=== PATIENT | female | born 1960 | race African-American/Black ===

== ENCOUNTER 2019-12-24 18:41 | Emergency (ER) | payer OTHER, SELFPAY ==
[2019-12-24 19:00] VITALS: BP 201/82; PULSE 90; RESP 19; TEMP 36.8; O2SAT 98
--- NOTE | 2019-12-24 19:00 | ED.GENADULT ---
HPI - General Adult General Chief complaint: Recheck/Abnormal Lab/Rx Stated complaint: elevated BP Time Seen by Provider: 12/24/19 19:00 Source: patient Mode of arrival: ambulatory Limitations: no limitations History of Present Illness HPI narrative: Patient states that she has been having more frequent migraines for the past couple days. She had one today took her usual Tylenol Extra Strength and her Claritin, her headache got a little bit better but then she took her blood pressure and noted to be high. She states that she has been eating a very salty diet for the last several days that included Fritos every night. She is denying any edema, no chest pain, no shortness of breath. At this time her headache is improved. Onset (ago): day(s) Severity scale (1-10): 1 Associated symptoms: denies other symptoms Treatments prior to arrival: NSAID Related Data Home Medications Medication Instructions Recorded Confirmed chlordiazepoxide HCl 12/24/19 diltiazem HCl PO 12/24/19 Allergies Allergy/AdvReac Type Severity Reaction Status Date / Time erythromycin base Allergy Intermediate UNKNOWN Verified 12/24/19 19:03 PER PT Review of Systems Review of Systems: All systems reviewed & are unremarkable except as noted in HPI and below PMFSH Social History Social History (Updated 12/24/19 @ 19:14 by Merline Feliz PA-C) Smoking status: Never smoker Alcohol intake: never Substance use: never Living arrangements: alone Gender identity (if verbalized by the patient): Female Exam Const: General: healthy appearing, no acute distress and alert Orientation/consciousness: patient oriented x3 HENMT: Head: normal to inspection General nose exam: Normal nares present Face and sinus: sinuses nontender Mouth: Yes moist mucous membranes Eyes: Periorbital: periorbital findings normal Conjunctivae: conjunctivae normal Pupils: Equal, round and reactive pupils present EOM: EOMs intact bilaterally Resp: Effort & Inspection: normal respiratory effort Auscultation: clear to auscultation bilaterally Cardio: Rate: regular rate Rhythm: regular rhythm GI: GI Palp: Yes Soft to palpation Skin: General skin exam: normal color Rashes: no rashes Extrem: General: normal to inspection and no clubbing, cyanosis or edema Psych: Mental Status: mental status grossly normal Course Course Emergency Course: Labs are unremarkable. Further discussion with pt revelled she was taking Claritan-D and her PMD had prescribed her Singulair instead. She got the medications confused. That in addition to the increase in sodium in her diet. Her blood pressure is better since arrival. Vital Signs Vital signs: Vital Signs Temperature 36.8 C 12/24/19 19:00 Pulse Rate 90 12/24/19 19:00 Respiratory Rate 19 12/24/19 19:00 Blood Pressure 201/82 H 12/24/19 19:00 Pulse Oximetry 98 12/24/19 19:00 Temperature 36.8 C 12/24/19 19:00 Pulse Rate 90 12/24/19 19:00 Respiratory Rate 19 12/24/19 19:00 Blood Pressure 201/82 H 12/24/19 19:00 Pulse Oximetry 98 12/24/19 19:00 Medical Decision Making Vital Signs Vital Signs: Vital Signs Temperature 36.8 C 12/24/19 19:00 Pulse Rate 90 12/24/19 19:00 Respiratory Rate 19 12/24/19 19:00 Blood Pressure 201/82 H 12/24/19 19:00 Pulse Oximetry 98 12/24/19 19:00 Temperature 36.8 C 12/24/19 19:00 Pulse Rate 90 12/24/19 19:00 Respiratory Rate 12/24/19 19:00 Blood Pressure 201/82 H 12/24/19 19:00 Pulse Oximetry 98 12/24/19 19:00 Lab Data Result diagrams: 12/24/19 19:34 12/24/19 19:34 Labs: Lab Results 12/24/19 12/24/19 12/24/19 Range/Units 19:34 19:34 19:34 WBC 7.1 (4.5-10.0) K/mm3 RBC 4.35 (4.2-5.4) M/mm3 Hgb 13.3 (12.0-15.0) g/dL Hct 42.1 (37.0-47.0) % MCV 96.8 (80-100) fl MCH 30.6 (26-34) pg MCHC 31.6 L (32-36) g/dl RDW 12.2 (11.5-14.5) % Plt Coun
--- NOTE | 2019-12-24 19:03 | ECG_ITS ---
Measurements Intervals [place] Rate: 95 P: 54 [place]: 169 QRS: 41 QRSD: 86 T: 14 QT: 366 QTc: 462 Interpretive Statements SINUS RHYTHM DELAYED PRECORDIAL R/S TRANSITION BORDERLINE T WAVE ABNORMALITY- INF/LAT LEADS BORDERLINE ECG Electronically Signed On 12-27-2019 7:09:38 STUDENT ACCOUNTS COORDINATOR by Jorge Luis Jansen D.O.
[2019-12-24 19:43] LABS: Basophils Absolute Auto 0.1 K/mm3 (0.0-0.1); Basophils Percent Auto 0.7 % (0.2-1.2); Eosinophils Absolute Auto 0.1 K/mm3 (0-0.3); Eosinophils Percent Auto 1.4 % (0-4.4); Hematocrit 42.1 % (37.0-47.0); Hemoglobin 13.3 g/dL (12.0-15.0); Immature Granulocyte Absolute 0.02 K/mm3 (0.00-0.031); Immature Granulocyte Percent A 0.3 % (0-0.5); Lymphocytes Absolute Auto 2.27 K/mm3 (0.9-3.2); Mean Corpuscular HGB Conc 31.6 g/dl (32-36); Mean Corpuscular Hemoglobin 30.6 pg (26-34); Mean Corpuscular Volume 96.8 fl (80-100); Mean Platelet Volume 11.8 fl (7.4-10.4); Monocytes Absolute Auto 0.7 K/mm3 (0.1-0.6); Monocytes Percent Auto 10.3 % (2.6-8.5); Neutrophils Absolute Auto 3.9 K/mm3 (1.3-6.7); Neutrophils Percent Auto 55.3 % (45.5-73.1); Platelet Count Result 224 k/mm3 (150-375); Red Blood Count 4.35 M/mm3 (4.2-5.4); Red Cell Distribution Width 12.2 % (11.5-14.5); White Blood Count 7.1 K/mm3 (4.5-10.0)
[2019-12-24 19:45] LABS: Add Urine Microscopic? NO; Appearance Urine Clear (Clear); Bilirubin Urine Negative (Negative); Blood Urine Negative (Negative); Color Urine Colorless (Yellow); Glucose Urine UA Negative (Negative); Ketones Urine Negative (Negative); Leukocyte Esterase Ur Negative LEU/UL (Negative); Nitrate Urine Negative (Negative); Protein Urine Negative (Negative); Specific Grav Ur 1.008 (1.001-1.035); Urobilinogen Urine Negative mg/dL (<2.0)
[2019-12-24 19:53] LABS: Alanine Aminotransferase 22 U/L (4-35); Albumin Level 4.8 g/dL (3.5-5.1); Alkaline Phosphatase 76 U/L (38-126); Aspartate Amino Transferase 26 U/L (14-36); Bilirubin,Total 0.3 mg/dL (0.2-1.3); Blood Urea Nitrogen 13 mg/dL (7-17); Calcium 9.6 mg/dL (8.4-10.2); Carbon Dioxide 26 mmol/L (22-30); Chloride 100 mmol/L (98-107); Estimated Glomerular Filt Rate > 60; Glucose 109 mg/dL (65-105); Potassium 3.6 mmol/L (3.4-5.0); Sodium 142 mmol/L (137-145)
[2019-12-24 20:29] VITALS: BP 184/73; PULSE 64; RESP 14; O2SAT 100
== END 2019-12-24 20:31 | disposition home or self-care (01) ==
PROVIDERS: Physician Assistant; Emergency Provider Emergency Medicine; PCP Internal Medicine
DX: I10 Essential (primary) hypertension (principal); G43.109 Migraine with aura, not intractable, without status migrainosus; R94.31 Abnormal electrocardiogram [ECG] [EKG]
CPT/HCPCS: 36415; 80053; 81003; 85025; 93005; 99283

== ENCOUNTER 2020-05-10 13:24 | Outpatient (CLI) | payer OTHER, SELFPAY ==
[2020-05-10 13:52] LABS: Basophils Absolute Auto 0.1 K/mm3 (0.0-0.1); Basophils Percent Auto 0.6 % (0.2-1.2); Eosinophils Absolute Auto 0.1 K/mm3 (0-0.3); Eosinophils Percent Auto 1.3 % (0-4.4); Immature Granulocyte Absolute 0.02 K/mm3 (0.00-0.031); Immature Granulocyte Percent A 0.2 % (0-0.5); Lymphocytes Absolute Auto 2.97 K/mm3 (0.9-3.2); Lymphocytes Percent Auto 30.6 % (18.3-44.2); Mean Corpuscular HGB Conc 31.8 g/dl (32-36); Mean Corpuscular Hemoglobin 31.2 pg (26-34); Mean Platelet Volume 11.5 fl (7.4-10.4); Monocytes Absolute Auto 0.8 K/mm3 (0.1-0.6); Monocytes Percent Auto 8.5 % (2.6-8.5); Neutrophils Absolute Auto 5.7 K/mm3 (1.3-6.7); Neutrophils Percent Auto 58.8 % (45.5-73.1); Platelet Count Result 276 k/mm3 (150-375); Red Blood Count 4.49 M/mm3 (4.2-5.4); Red Cell Distribution Width 11.9 % (11.5-14.5); White Blood Count 9.7 K/mm3 (4.5-10.0)
== END 2020-05-10 13:25 | disposition home or self-care (01) ==
PROVIDERS: PCP Internal Medicine; Visit Provider Obstetrics & Gynecology
DX: D25.9 Leiomyoma of uterus, unspecified (principal); Z01.812 Encounter for preprocedural laboratory examination
CPT/HCPCS: 36415; 85025; 86850; 86900; 86901

== ENCOUNTER 2020-05-17 01:13 | Outpatient (CLI) | payer OTHER, SELFPAY ==
[2020-05-17 18:07] LABS: SARS-CoV-2 RNA PCR Negative
== END 2020-05-17 01:14 | disposition home or self-care (01) ==
LOC: ANHCOVIDDT 01:13
PROVIDERS: PCP Internal Medicine; Visit Provider Obstetrics & Gynecology
DX: Z01.812 Encounter for preprocedural laboratory examination (principal); Z11.59 Encounter for screening for other viral diseases
CPT/HCPCS: 87635; C9803; U0003

== ENCOUNTER 2020-05-19 02:26 | Day surgery (SDC) | payer OTHER, SELFPAY ==
[2020-05-08 15:01] VITALS: BMI 29.1
--- NOTE | 2020-05-17 09:29 | P.HP_ITS ---
H&P: HPI History of Present Illness Chief complaint: Postmenopausal Bleeding/ Uterine Fibroids Narrative: Yulia Lizarraga is a 60 year old female admitted for robotic total vaginal hysterectomy and bilateral salpingo- oophorectomy. She has had intermittent postmenopausal bleeding. D&C specimens have always been benign. Risks and benefits of the procedure were reviewed. She had all questions answered. She asked to proceed Review of Systems Review of Systems: All systems reviewed & are unremarkable except as noted in HPI and below PMFSH Social History Social History Smoking status: Never smoker Alcohol intake: never Substance use: never Gender identity (if verbalized by the patient): Female Spiritual care concerns: No Meds Home Medications and Allergies Home Medications Medication Instructions Recorded Confirmed Type chlordiazepoxide HCl 10 mg PO BID 12/24/19 05/08/20 History cholecalciferol (vitamin D3) 50 mcg PO DAILY 05/08/20 05/08/20 History [Vitamin D3] diltiazem HCl 240 mg PO DAILY 05/08/20 05/08/20 History loratadine [Claritin] 10 mg PO DAILY 05/08/20 05/08/20 History montelukast [Singulair] 10 mg PO DAILY 05/08/20 05/08/20 History omeprazole 20 mg PO DAILY 05/08/20 05/08/20 History Allergies Allergy/AdvReac Type Severity Reaction Status Date / Time erythromycin base Allergy Intermediate UNKNOWN Verified 05/08/20 15:05 PER PT ciprofloxacin Allergy UNKNOWN Verified 05/08/20 15:05 REACTION Exam Const: General: no acute distress Eyes: General: appearance normal, both eyes and all related structures Neck: Neck: supple and no JVD Thyroid: thyroid normal Resp: Effort & Inspection: normal respiratory effort Auscultation: clear to auscultation bilaterally Cardio: Rate: regular rate Rhythm: regular rhythm GI: Inspection: non-distended GI Palp: Yes Soft to palpation, No Tenderness to palpation present (GI) and No Guarding due to palpation present (GI) Auscultation: normal bowel sounds : External Female Exam: normal external appearance Speculum Exam - Vagina: normal appearance of the vagina Speculum Exam - Cervix: normal appearance of the cervix Bimanual exam- vagina & uterus: enlarged Bimanual Exam- Adnexa, other: no masses Skin: General skin exam: no rashes or lesions noted Extrem: General: normal to inspection and no edema Psych: Mental Status: mental status grossly normal Affect: normal affect Assessment and Plan Additional Plan impression: Symptomatic fibroids postmenopausal bleeding with benign endometrial findings Plan: total vaginal hysterectomy and bilateral salpingo-oophorectomy the
[2020-05-19] VITALS (14 sets, daily range): BP systolic 141–184; BP diastolic 47–69; PULSE 48–99; RESP 13–18; TEMP 36.1–37.1; O2SAT 95–100
--- NOTE | 2020-05-19 06:50 | WPDHPUPDATE1 ---
History and Physical Update Update Date/Time: 05/19/20 06:50 History and Physical has been reviewed, including an updated exam of the patient. There are NO changes in the patient's condition. Risks, benefits, and alternatives have been discussed and questions answered. Patient agrees to proceed with procedure.
[2020-05-19] MEDS: LACTATED RINGERS 1,000 ML 30 ML IV CONT ×2 (07:55→10:45)
--- NOTE | 2020-05-19 08:07 | WPDANESEPPF ---
Anes - Initial Pre Proc Eval Procedure: Operation Date: 05/19/20 09:30 Proposed Procedures p Robotic Assisted Total Vaginal Hysterectomy With Bilateral Salpingo-Oophorectomy - Diomedes Villagomez MD Date/Time: 05/19/20 08:07 Surgeon: Diomedes Villagomez MD Pre Op Diagnosis: Postmenopausal Bleeding/ Uterine Fibroids Patient Data Age: 60 Gender: F Height: 5 ft 7 in Weight: 81 kg Allergies Allergy/AdvReac Type Severity Reaction Status Date / Time erythromycin base Allergy Intermediate UNKNOWN Verified 05/19/20 07:34 PER PT ciprofloxacin Allergy UNKNOWN Verified 05/19/20 07:34 REACTION Home Medications Medication Instructions Recorded Confirmed Type chlordiazepoxide HCl 10 mg PO BID 12/24/19 05/19/20 History cholecalciferol (vitamin D3) 50 mcg PO DAILY 05/08/20 05/19/20 History [Vitamin D3] diltiazem HCl 240 mg PO DAILY 05/08/20 05/19/20 History loratadine [Claritin] 10 mg PO DAILY 05/08/20 05/19/20 History montelukast [Singulair] 10 mg PO DAILY 05/08/20 05/19/20 History omeprazole 20 mg PO DAILY 05/08/20 05/19/20 History hydrocodone-acetaminophen [[place]] 1 tablet PO Q4H PRN #30 tablet 05/19/20 Rx Patient hx anesthesia problems: none Family hx anesthesia problems: none PMFSH Social History Social History Smoking status: Never smoker Alcohol intake: never Substance use: never Gender identity (if verbalized by the patient): Female Spiritual care concerns: No Anes - Eval Final PreProcedure Day of Procedure 05/19/20 08:07 Patient weight: overweight Heart: regular rate and rhythm Lungs: clear to auscultation Airway: Mallampati scale class II Neurological: alert and oriented Last oral intake: >/= 8 hours ASA classification: II Emergent: no Anesthetic plan: proceed Anesthesia type and monitoring: general ETT and standard monitoring Informed Consent: The patient's anesthetic plan and its attendant risks and benefits were discussed with the patient/family/POA. Questions were solicited and answers provided to the satisfaction of the patient/family/POA.
[2020-05-19] MEDS: KETOROLAC 15 MG/ML VIAL (*BKC) IV PUSH (08:09)
[2020-05-19] MEDS: ACETAMINOPHEN 500 MG TABLET 1000 MG PO (08:09)
[2020-05-19] MEDS: ceFAZolin 2 GM/D5W 50 ML 2 GM/50 ML BAG IVPB (09:24)
--- NOTE | 2020-05-19 10:23 | SUR.OPER ---
Ebl=25ml Dszen=[id number]
--- NOTE | 2020-05-19 10:32 | PM.PROC ---
Procedure Note - Detailed Date of procedure: 05/19/20 Pre-op diagnosis: Postmenopausal Bleeding/ Uterine Fibroids Surgeon: Diomedes Villagomez MD Postop diagnosis: Postmenopausal bleeding/ uterine fibroids Procedure: Robotic total vaginal hysterectomy and bilateral salpingectomy EBL: 25cc Complications: None Findings: Fibroid uterus normal-appearing ovaries and tubes Description of procedure: The patient was prepped draped in the normal sterile fashion placed in the dorsal lithotomy position. Under excellent general endotracheal anesthesia weighted speculum placed in posterior fornix of vagina. Anterior lip of the cervix grasped with single-tooth tenaculum and the uterus sounded to 10cm. Serial dilatation with fragmented dilators performed followed by passage of the 8. DAYAN and the 3. And half cold cup. A 16 [place] catheter was placed in the bladder draining clear fluid. The remainder the instruments removed. Gloves were changed. A supraumbilical incision made in the Veress needle passed in the abdomen. The abdomen was filled with CO2 gas [id number]. The 8mm trocar advanced in the abdomen. The downside visualized and no injury seen. The patient was placed in Trendelenburg and right and left lateral quadrant incision made. The 8mm trocars were advanced directly into the abdomen under direct visualization assuring no injury. A right upper quadrant incision made in the 10mm trocar advanced in the abdomen under direct visualization again assuring no injury. The robot was docked. Attention was turned to the counseling services director. The round ligament on the left was clamped, burned, cut. Anteriorly a bladder flap was formed by sharply dissecting across the the cervix and uterus reflecting the bladder caudally away from the dissecting area. This was brought to the opposite round ligament which was clamped, burned, cut. The left infundibulopelvic structure was then skeletonized. This was clamped, burned, cut and brought to the level of the previously cut round ligament. In like fashion to remove the right ovary and tube the infundibulopelvic was skeletonized. This was clamped, burned, cut. This was brought to the level of the previously cut round ligament. The cardinal and broad ligaments were then serially skeletonized on the left brought down the lateral edge of the cervix and uterus. These were clamped, burned, cut until each uterine vessel could be seen individually which were clamped, burned, cut. In like fashion the cardinal and broad ligaments on the right were serially skeletonized. These were clamped, burned, cut and brought down the level of previously cut pedicles. When the uterine vessels could be seen these were individually clamped, burned, cut. Blanching of the uterus was seen. A colpotomy incision was made in the cervix uterus ovaries and tubes were removed through the vagina. The vagina was closed with continuous running 0V lock from lateral edge to lateral edge and back to the midline. Irrigation undertaken to clear and hemostasis was assured. The robot was undocked. The gas removed from the abdomen. The trocars removed from the abdomen. The incisions closed with 4 O Monocryl and glue. All sponge, needle, instrument counts were correct. There were no immediate complications. Patient went to recovery in satisfactory condition
--- NOTE | 2020-05-19 10:50 | ECG_ITS ---
Measurements Intervals [place] Rate: 48 P: 240 [place]: 137 QRS: 50 QRSD: 95 T: 0 QT: 450 QTc: 405 Interpretive Statements SINUS RHYTHM WITH COMPLETE HEART BLOCK JUNTIONAL ESCAPE RHYTHM INCOMPLETE RIGHT BUNDLE BRANCH BLOCK NONSPECIFIC ST & T-WAVE ABNORMALITY- INF/LAT LEADS ABNORMAL ECG Electronically Signed On 05-19-2020 12:53:24 CDT by Jorge Luis Jansen D.O.
--- NOTE | 2020-05-19 11:17 | SUR.PHASEI ---
1050- foleyin place, patnt. secured to right thigh. peripad in place. abd sites with glue.
[2020-05-19] MEDS: DEXTROSE 5%/LACTATED RINGERS 1,000 ML 125 ML IV CONT (12:26)
[2020-05-19] MEDS: KETOROLAC 30 MG/ML VIAL (*BKC) IV PUSH ×2 (15:01→21:10)
[2020-05-20 05:00] VITALS: BP 162/65; PULSE 99; RESP 16; TEMP 36.8
[2020-05-20] MEDS: IBUPROFEN 600 MG TABLET PO (05:00)
[2020-05-20 05:18] LABS: Basophils Percent Auto 0.1 % (0.2-1.2); Eosinophils Percent Auto 0.1 % (0-4.4); Hematocrit 41.1 % (37.0-47.0); Hemoglobin 13.4 g/dL (12.0-15.0); Immature Granulocyte Absolute 0.09 K/mm3 (0.00-0.031); Immature Granulocyte Percent A 0.6 % (0-0.5); Lymphocytes Absolute Auto 1.74 K/mm3 (0.9-3.2); Lymphocytes Percent Auto 11.2 % (18.3-44.2); Mean Corpuscular HGB Conc 32.6 g/dl (32-36); Mean Corpuscular Hemoglobin 31.3 pg (26-34); Mean Platelet Volume 11.8 fl (7.4-10.4); Monocytes Absolute Auto 1.1 K/mm3 (0.1-0.6); Monocytes Percent Auto 7.1 % (2.6-8.5); Neutrophils Absolute Auto 12.6 K/mm3 (1.3-6.7); Neutrophils Percent Auto 80.9 % (45.5-73.1); Platelet Count Result 248 k/mm3 (150-375); Red Blood Count 4.28 M/mm3 (4.2-5.4); Red Cell Distribution Width 11.9 % (11.5-14.5); White Blood Count 15.6 K/mm3 (4.5-10.0)
[2020-05-20 06:30] VITALS: BP 171/77; PULSE 87; RESP 18; TEMP 37.6
--- NOTE | 2020-05-20 07:39 | PM.DS ---
DS: Admitting Diagnosis Admitting Diagnosis Admitting Diagnosis: Leiomyoma of uterus, unspecified DS: Summary Hospital Course Hospital Course: Ms. Lizarraga was admitted after robotic assisted total laparoscopic hysterectomy and bilateral salpingo-oophorectomy for abnormal uterine bleeding secondary to uterine fibroids. The above procedure was performed with no complications. She is doing well post op. She states her pain is well controlled with PO medications. She reports minimal bleeding. She is ambulating up to the chair. Her he catheter was removed. She is tolerating PO without N/V. She reports passing flatus. Status at Discharge Overall status at discharge: patient is progressing back to baseline Time Spent with Patient Time attestation: Total time spent providing and/or coordinating discharge services: Time spent: Less than 30 minutes Exam Const: General: comfortable and no acute distress Limitations: no limitations Resp: Effort & Inspection: normal respiratory effort Auscultation: clear to auscultation bilaterally Cardio: Rate: regular rate Rhythm: regular rhythm GI: Inspection: non-distended GI Palp: Yes Soft to palpation, Yes Tenderness to palpation present (GI) (milder tenderness to deep palpation) and No Guarding due to palpation present (GI) Auscultation: normal bowel sounds Other: incisions C/D/I covered with dermabond Urinary Catheter: Urinary Catheter: urine clear Skin: General skin exam: normal color Extrem: General: normal to inspection Psych: Mental Status: mental status grossly normal Affect: normal affect DS: Data Data Completed and Pending Pending studies at discharge: Pending at discharge 05/19/20 10:07 Surgical [PTH] Routine Labs on day of discharge: Labs from last 24 hours 05/20/20 05:07 WBC 15.6 H RBC 4.28 Hgb 13.4 Hct 41.1 MCV 96.0 MCH 31.3 MCHC 32.6 RDW 11.9 Plt Count 248 MPV 11.8 H Immature Gran % (Auto) 0.6 H Neut % (Auto) 80.9 H Lymph % (Auto) 11.2 L [place] % (Auto) 7.1 Eos % (Auto) 0.1 Baso % (Auto) 0.1 L Lymph # (Auto) 1.74 [place] # (Auto) 1.1 H Eos # (Auto) 0.0 Baso # (Auto) 0.0 Abs Immat Gran (auto) 0.09 H Absolute Neuts (auto) 12.6 H Absolute Nucleated RBC 0.0 Nucleated RBC % 0.0 Discharge Plan Discharge Patient Disposition: Home, Self-Care Patient Instructions: Laparoscopic Hysterectomy (DC) Stand Alone Forms: General Discharge Instructions Follow-up/Referrals: Diomedes Villagomez MD [Physician] - Discharge Medications: New hydrocodone-acetaminophen [[place]] 5-325 mg tablet 1 tablet PO Q4H PRN (Reason: pain) Qty: 30 RF: 0 No Action chlordiazepoxide HCl 10 mg capsule 10 mg PO BID RF: 0 diltiazem HCl 240 mg capsule,extended release 24 hr 240 mg PO DAILY RF: 0 montelukast [Singulair] 10 mg Tablet 10 mg PO DAILY RF: 0 loratadine [Claritin] 10 mg Tablet 10 mg PO DAILY RF: 0 cholecalciferol (vitamin D3) [Vitamin D3] 50 mcg (2,000 unit) Capsule 50 mcg PO DAILY RF: 0 omeprazole 20 mg Tablet,Disintegrat, Delay Rel 20 mg PO DAILY RF: 0 Primary Care Provider: Kristopher,Reji Attending physician on admission: Diomedes Villagomez
[2020-05-20] MEDS: DOCUSATE SODIUM 100 MG CAPSULE PO (08:00)
[2020-05-20] MEDS: ENOXAPARIN 40 MG/0.4 ML SYRINGE SUB-Q (08:00)
--- NOTE | 2020-05-20 08:17 | P.PNAN_ITS ---
Anes - Prog Note Post-Op Date/Time: 05/20/20 08:17 Cardiovascular status: normal Respiratory status: normal Airway patency: baseline Mental status: baseline Post-Op hydration status: normal Vital Signs: Last Vital Signs Temp 99.6 F 05/20/20 06:30 Pulse 87 05/20/20 06:30 Resp 18 05/20/20 06:30 BP 171/77 H 05/20/20 06:30 Pulse Ox 100 05/19/20 15:00 I/O: Intake & Output 05/19/20 05/20/20 05/20/20 23:59 07:59 15:59 Intake Total 1600 1000 Output Total 1950 1350 Balance -350 -350 Laboratory Tests 05/20/20 05:07 05/20/20 05:07 WBC 15.6 H RBC 4.28 Hgb 13.4 Hct 41.1 MCV 96.0 MCH 31.3 MCHC 32.6 RDW 11.9 Plt Count 248 MPV 11.8 H Immature Gran % (Auto) 0.6 H Neut % (Auto) 80.9 H Lymph % (Auto) 11.2 L [place] % (Auto) 7.1 Eos % (Auto) 0.1 Baso % (Auto) 0.1 L Lymph # (Auto) 1.74 [place] # (Auto) 1.1 H Eos # (Auto) 0.0 Baso # (Auto) 0.0 Abs Immat Gran (auto) 0.09 H Absolute Neuts (auto) 12.6 H Absolute Nucleated RBC 0.0 Nucleated RBC % 0.0 Post-procedural complaints: none Patient Feedback: Patient satisfied with anesthetic care.
== END 2020-05-20 09:12 | disposition home or self-care (01) ==
LOC: ANHSURGERY 07:18 → ANHOB2 12:10
PROVIDERS: PCP Internal Medicine; Visit Provider Obstetrics & Gynecology
PROC: (CPT 58552; principal; 2020-05-19 09:30)
DX: N95.0 Postmenopausal bleeding (principal); N80.0 Endometriosis of uterus; D25.1 Intramural leiomyoma of uterus
CPT/HCPCS: 58552; S2900; 36415; 85025; 88307; 93005; 99199; A9270; J0330; J0690; J1100; J1650; J1885; J2250; J2405; J2704; J2710; J3010; J7030; J7120; J7121

== ENCOUNTER 2021-02-27 08:35 | Outpatient (CLI) | payer OTHER, SELFPAY ==
--- NOTE | ~2021-02-27 | MM_ITS ---
EXAMINATION: MM screening julia BI w lupis HISTORY: Screening mammogram TECHNIQUE: Craniocaudal and mediolateral oblique 3-D tomosynthesis images were obtained and synthetic 2-D images were generated. CAD analysis was submitted and interpreted. COMPARISON: 11/24/2019, 11/16/2018, 09/18/2017 BREAST PARENCHYMAL COMPOSITION: There are scattered areas of fibroglandular density. FINDINGS: Scattered benign-appearing calcifications are present. There is no evidence of suspicious m ass, calcification, or architectural distortion to suggest malignancy in either breast. There has bee n no suspicious interval change. IMPRESSION: 1. No mammographic evidence of malignancy. 2. Recommend routine screening mammography in one year. BI-RADS Category 2: Benign finding(s). Reviewed, dictated and finalized at location A.
== END 2021-02-27 08:36 | disposition home or self-care (01) ==
PROVIDERS: PCP Internal Medicine; Visit Provider Obstetrics & Gynecology
DX: Z12.31 Encounter for screening mammogram for malignant neoplasm of breast (principal)
CPT/HCPCS: 77063; 77067

== ENCOUNTER 2022-03-18 08:56 | Outpatient (CLI) | payer OTHER, SELFPAY ==
--- NOTE | ~2022-03-18 | MM_ITS ---
EXAMINATION: MM screening julia BI w lupis HISTORY: Screening TECHNIQUE: Craniocaudal and mediolateral oblique 3-D tomosynthesis images were obtained and synthetic 2-D images were generated. CAD analysis was submitted and interpreted. COMPARISON: Comparison to multiple prior studies sequentially, with oldest reviewed study dated 05/06. BREAST PARENCHYMAL COMPOSITION: There are scattered areas of fibroglandular density. FINDINGS: There is a new focal asymmetry in the central aspect of the right breast posteriorly on CC view. The left breast is stable without evidence for malignancy. There are scattered benign-appearing calcifications. IMPRESSION: 1. New focal right breast asymmetry. 2. Additional mammographic views and possible breast ultrasound are recommended. BI-RADS Category 0: Incomplete: Needs additional imaging evaluation. Reviewed, dictated and finalized at location A. IMPRESSION: 1. New focal right breast asymmetry. 2. Additional mammographic views and possible breast ultrasound are recommended . BI-RADS Category 0: Incomplete: Needs additional imaging evaluation.
== END 2022-03-18 08:57 | disposition home or self-care (01) ==
LOC: ANHIMG 09:02
PROVIDERS: Visit Provider Obstetrics & Gynecology
DX: Z12.31 Encounter for screening mammogram for malignant neoplasm of breast (principal); R92.8 Other abnormal and inconclusive findings on diagnostic imaging of breast
CPT/HCPCS: 77063; 77067

== ENCOUNTER 2022-04-02 12:20 | Outpatient (CLI) | payer OTHER, SELFPAY ==
--- NOTE | ~2022-04-02 | MM_ITS ---
EXAMINATION: MM diagnostic julia RT w lupis HISTORY: New focal right breast asymmetry reported on 03/18/2022 screening mammogram TECHNIQUE: Additional 3-D tomosynthesis images of right breast were performed and synthetic 2-D image s were generated. Rolled medial and rolled lateral CC views. CAD analysis was submitted and interpret ed. COMPARISON: 03/18/2022 bilateral screening mammogram FINDINGS: No reproducible mass or architectural distortion is evident at the area of interest in the posterior central right breast on craniocaudal view of 03/18/2022. Scattered benign calcifications. IMPRESSION: 1. No mammographic evidence of malignancy 2. Routine annual mammographic screening is recommended BI-RADS Category 2: Benign finding(s). Reviewed, dictated and finalized at location A.
== END 2022-04-02 12:21 | disposition home or self-care (01) ==
LOC: ANHIMG 12:21
PROVIDERS: Visit Provider Obstetrics & Gynecology
DX: R92.8 Other abnormal and inconclusive findings on diagnostic imaging of breast (principal)
CPT/HCPCS: 77061; 77065; G0279

== ENCOUNTER 2023-04-08 09:50 | Outpatient (CLI) | payer OTHER, SELFPAY ==
--- NOTE | ~2023-04-08 | MM_ITS ---
EXAMINATION: MM screening julia BI w lupis HISTORY: Screening mammogram TECHNIQUE: Craniocaudal and mediolateral oblique 3-D tomosynthesis images were obtained and synthetic 2-D images were generated. CAD analysis was submitted and interpreted. COMPARISON: 03/29/2022 diagnostic right mammogram 03/18/2022, 02/27/2021, 11/24/2019 bilateral screening mammogram examinations BREAST PARENCHYMAL COMPOSITION: There are scattered areas of fibroglandular density. FINDINGS: Scattered bilateral benign microcalcifications. There is no evidence of suspicious mass, ca lcification, or architectural distortion to suggest malignancy in either breast. There has been no rudd spicious interval change. IMPRESSION: 1. No mammographic evidence of malignancy. 2. Recommend routine screening mammography in one year. BI-RADS Category 2: Benign finding(s). Reviewed, dictated and finalized at location A.
== END 2023-04-08 09:51 | disposition home or self-care (01) ==
LOC: ANHIMG 09:57
PROVIDERS: PCP Internal Medicine; Visit Provider Obstetrics & Gynecology
DX: Z12.31 Encounter for screening mammogram for malignant neoplasm of breast (principal)
CPT/HCPCS: 77063; 77067

== ENCOUNTER 2024-01-15 11:16 | Outpatient (CLI) | payer OTHER, SELFPAY ==
--- NOTE | ~2024-01-15 | MMUS_ITS ---
EXAMINATION: MM diagnostic julia LT w lupis, US breast LT complete HISTORY: Left breast pain TECHNIQUE: Additional 3-D tomosynthesis images of the left breast were performed and synthetic 2-D im ages were generated. CAD analysis was submitted and interpreted. High resolution complete left breast ultrasound examination including all 4 quadrants and subareolar area was performed. COMPARISON: 04/08/2023, 03/14/2022 bilateral screening mammogram examinations FINDINGS: MAMMOGRAPHIC FINDINGS: Approximately 7 x 7 mm mass is suggested posteriorly in the upper outer left breast (ML Tomosynthesis image 26/81). The heterogeneously dense stroma may obscure small masses. Complete left breast ultrasound examinatio n was performed. ULTRASOUND: 12:00 2 cm from nipple: 4.2 x 5.6 mm stable cyst with through transmission and posterior enhancement, no internal vascularity 12:00 1 cm from nipple: 4 x 6 mm parallel oval circumscribed sonolucency with through transmission an d posterior enhancement, no internal vascularity, consistent with simple cyst 1:00 8 cm from nipple: Similar 9 x 10 mm simple cyst 1:00 7 cm from nipple: 3.8 x 5.8 mm simple cyst No suspicious mass or shadowing of the left breast is detected. IMPRESSION: 1. Benign cysts 2. Routine annual mammographic screening is recommended BI-RADS Category 2: Benign finding(s). Reviewed, dictated and finalized at location A. TECHNICIAN IMPRESSION: 1. Benign cysts 2. Routine annual mammographic screening is recommended BI-RADS Category 2: Benign finding(s).
== END 2024-01-15 11:17 | disposition home or self-care (01) ==
PROVIDERS: Visit Provider Obstetrics & Gynecology
DX: N64.4 Mastodynia (principal)
CPT/HCPCS: 76641; 77061; 77065; G0279

== ENCOUNTER 2025-07-05 10:12 | Outpatient (CLI) | payer OTHER, SELFPAY ==
--- NOTE | ~2025-07-05 | MM_ITS ---
EXAMINATION: MM screening [facility] BI w lupis HISTORY: Screening TECHNIQUE: Craniocaudal and mediolateral oblique 3-D tomosynthesis images were obtained and synthetic 2-D images were generated. CAD analysis was submitted and interpreted. COMPARISON: Comparison to multiple prior studies sequentially, with oldest reviewed study dated 09/18/2017. BREAST PARENCHYMAL COMPOSITION: There are scattered areas of fibroglandular density. FINDINGS: There is no evidence of suspicious mass, calcification, or architectural distortion to suggest malignancy in either breast. Scattered benign-appearing calcifications are present. IMPRESSION: 1. No mammographic evidence of malignancy. 2. Recommend routine screening mammography in one year. BI-RADS Category 2: Benign finding(s). Reviewed, dictated and finalized at location B.
--- OUTSIDE RECORDS SUMMARY | 2025-07-05 10:38 | XMS_ITS | Clinical Summary ---
Author Organization [facility] Address [address] [facility] [place] [address] Care Team Providers Care Cnc Laser Operator Name Role Phone Diomedes Glez MD Unavailable [phone] Donnell Lopez MD Unavailable [phone] Philip Duarte MD Primary Care Provider [phone] Source Comments [facility],non-owned Affiliates and Associated Physician Practices is amultiple site organization consisting of ambulatory clinics and hospital sitesin [place], [place], [place] and [place]. This disclosure is being madepursuant to the Care Everywhere program and may not contain all information available regarding this patient. Last updated 18.[facility] Allergies Active Allergy Reactions Criticality Noted Date Comments Chlorthalidone Palpitations High 08/17/2024 Ciprofloxacin Rash,Psychiatric,Urticaria High 2019 Erythromycin Headache,Other High 03/23/2024 Hydralazine Palpitations High 08/17/2024 Trazodone Psychiatric,Palpitations High 08/17/2024 Medications * Be aware that medications may not be up to date on this document. Alwaysverify current medications with the patient. vitamin D, cholecalciferol , 2000 UNITS tablet Take 1 Tab by mouth once daily. 0 04/01/20 13 Active diphenhydrAMINE (BENADRYL) 25 MG capsule Take 1 Cap by mouth nightly as needed for Itching. 0 02/01/20 14 Active multivitamin daily tablet Take 1 (one) tablet by mouth daily with food When pt remembers Active Sodium Chloride (NASAL MIST IN) Extra Strength 1 spray each nostril daily prn. Active SUMAtriptan (IMITREX) 100 MG tablet Take 1 tablet by mouth once as needed for Migraine Maximum of 200mg per day. May repeat first dose after 2 hours. 9 tablet 5 08/23/20 20 Active PREMARIN 1.25 MG tablet Take 1 (one) tablet by mouth once daily 09/11/20 21 Active medroxyPROGESTE Aung (PROVERA) 5 MG tablet Take 1 (one) tablet by mouth as needed 1 wk out of a month. 05/04/20 22 Active albuterol HFA (Proventil; Ventolin; Proair) 108 (90 Base) MCG/ACT inhalerIndicati ons:Acute bronchitis, unspecified organism Inhale 2 (two) puffs by mouth every 6 hours as needed for Wheezing or Cough 1 g 5 08/21/20 23 Active losartan (Cozaar) 50 MG tablet Take 2 (two) tablets by mouth once daily Prescribed by hospitalist at discharge. 30 tablet 03/02/20 24 Active dilTIAZem ER 24hr (Tiazac) 240 MG capsule Take 1 (one) capsule by mouth once daily 90 capsule 1 04/19/20 24 Active atorvastatin (Lipitor) 40 MG tablet atorvastatin 40 mg tablet 08/14/20 24 Active spironolactone (Aldactone) 25 MG tablet 09/06/20 24 Active cloNIDine (Catapres) 0.1 MG/24HR patchIndication s:Essential hypertension Apply 1 (one) patch to skin every 7 days 11/04/20 24 Active DULoxetine (Cymbalta) 60 MG capsuleIndicati ons:Fibromyalgi a Syndrome,Periph eral Neuropathy Take 1 (one) capsule by mouth every morning Reasons: Fibromyalgia Syndrome, Peripheral Nerve Disease 90 capsule 3 11/22/19 25 Active gabapentin (Neurontin) 300 MG capsuleIndicati ons:Fibromyalgi a Syndrome,Periph eral Neuropathy Take 1 (one) capsule by mouth at bedtime Reasons: Fibromyalgia Syndrome, Peripheral Nerve Disease 90 capsule 3 11/22/19 25 Active ipratropium (Atrovent) 0.03 % nasal sprayIndication s:Post-viral cough syndrome [place] 1-2 sprays into each nostril 3 times daily as needed 30 mL 11 12/10/19 25 Active famotidine (Pepcid) 20 MG tabletIndicatio ns:Gastroesopha geal Reflux Disease Take 1 (one) tablet by mouth 2 times daily as needed for Heartburn Reasons: Gastroesophageal Reflux Disease 60 tablet 4 03/31/20 25 Active esomeprazole (NexIUM) 40 MG capsuleIndicati ons:Gastroesoph ageal Reflux Disease Take 1 (one) capsule by mouth 2 times daily, before breakfast and supper Reasons: Gastroesophageal Reflux Disease 60 capsule 2 05/24/20 25 Active azelastine (Astelin) 0.1 % nasal sprayIndication s:Nonallergic rhinitis USE 2 SPRAYS IN EACH NOSTRIL TWICE DAILY 90 mL 4 06/27/20 25 Active fluticasone propionate (Flonase) 50 MCG/ACT nasal sprayIndication s:Nonallergic rhinitis SHAKE LIQUID AND USE 2 SPRAYS IN EACH NOSTRIL EVERY DAY 16 g 4 06/27/20 25 Active levocetirizine (Xyzal) 5 MG tabletIndicatio ns:Perennial Allergic Rhinitis Take 1 (one) tablet by mouth once daily Reasons: Perennial Allergic Rhinitis 100 tablet 1 06/27/20 25 Active olopatadine (Pataday) 0.2 % ophthalmic solutionIndicat ions:Nonallergi c rhinitis Instill 1 (one) drop into both eyes once daily 2.5 mL 4 06/27/20 25 Active doxycycline hyclate 100 MG tabletIndicatio ns:Acute recurrent sinusitis, unspecified location Take 1 (one) tablet by mouth 2 times daily for 7 days 14 tablet 07/01/20 25 025 Active loratadine (CLARITIN) 10 MG tablet Take 1 Tab by mouth once daily as needed for Runny Nose or Allergies. 30 Tab 5 02/01/20 14 025 Disconti nued(Tx Complete ) azelastine (Astelin) 0.1 % nasal sprayIndication s:Nonallergic rhinitis USE 2 SPRAYS IN EACH NOSTRIL TWICE DAILY 90 mL 11 12/10/19 25 025 Disconti nued(Reo rder) fluticasone propionate (Flonase) 50 MCG/ACT nasal sprayIndication s:Nonallergic rhinitis SHAKE LIQUID AND USE 2 SPRAYS IN EACH NOSTRIL EVERY DAY 16 g 11 12/10/19 25 025 Disconti nued(Reo rder) ezetimibe (Zetia) 10 MG tablet Take 1 (one) tablet by mouth once daily 025 Disconti nued(Tx Complete ) cetirizine (ZyrTEC) 10 MG tablet Take 1 (one) tablet by mouth once daily 05/18/20 25 025 Disconti nued(Tx Complete ) Active Problems Problem Noted Date Diagnosed Date Nonallergic rhinitis 06/27/2025 Peripheral polyneuropathy 11/22/2024 Overview (11/22/2024): Possibly due to chronic inflammation, autoimmune Symptoms controlled with gabapentin + duloxetine Fibromyalgia syndrome 09/08/2024 Assessment & Plan (09/08/2024 12:03 PM CDT): I discussed the approach to the clinical diagnosis of a fibromyalgia syndrome as a cause for chronic musculoskeletal pain and I have recommended to initiate treatment with duloxetine 30 mg each AM (in place of sertraline) and gabapentin 300 mg taken at bedtime to help try to control symptoms. Additional work up with neurodiagnostic testing (NCV) to evaluate for consideration of a peripheral sensory polyneuropathy (see orders placed for testing). I do not provide long-term care for the treatment of fibromyalgia and eventually Tanya Lizarraga should be able to follow-up with her primary care provider/physician for any additional needed long-term treatment approach recommendations that may be of benefit for relief of symptoms related to this non-inflammatory hypersensitivity pain disorder. I strongly encourage the avoidance of opiate analgesic medication (narcotics), as well as benzodiazepines, in the treatment of fibromyalgia associated pain given their potential risk for serious side effects and/or dependency issues and opiate induced hyperalgesia (use of long term acute care registered nurse opiate/narcotic actually causing more pain rather than less) that can be associated with such use. The use of gabapentin or other available FDA approved medications for the treatment of fibromyalgia including Cymbalta (duloxetine), Lyrica (pregabalin), or Savella could be considered for future symptomatic pain treatment if not previously tried and without contraindication to use but will defer senior living treatment management decisions to her primary care provider/physician for future treatment consideration of this type of a non-inflammatory chronic pain syndrome. I would also strongly encourage non pharmacologic interventions, including working with a pain psychologist trained in cognitive behavioral therapy such is relaxation techniques, biofeedback and visual imagery that can also be helpful, as well as aerobic conditioning exercise in the treatment of this type of non-inflammatory chronic pain condition. Tanya Lizarraga was provided additional written information regarding fibromyalgia for further educational information. Fibromyalgia is a painful condition that is not completely understood by medical experts. The cause of fibromyalgia is not known. A person may feel tired and ache all over. It causes tender spots on the body that hurt only when pressed upon. A patient may have trouble sleeping, as well as other symptoms. These problems can upset work and home life. Symptoms tend to come and go, although they may never go away completely. Fibromyalgia does not harm the muscles, joints or organs or cause any permanent deformity or disability in the body. Fibromyalgia syndrome is characterized by generalized noninflammatory pain and is associated with long-standing pain that may come and go and be variable or at time persistently contant. The pain may be located in the soft tissues including tendons or muscles or joints. The pain can occur in any of the extremities and also be felt along the spine or torso. This is the reason some people feel that they have arthritis. Other unusual symptoms that may suggest an underlying neurologic disorder have also been described in patients with fibromyalgia including numbness and tingling type sensations and shooting pains. Patients often describe fatigue and may awaken with non restorative sleep quality. The condition can occur in men or women in any age but is most common in women routine the ages of 20 in 50. There is no specific test used that can confirm the diagnosis of fibromyalgia and is considered a diagnosis of exclusion where by other conditions need to be excluded and this may or may not require additional test to be performed. The current nature of fibromyalgia seems to suggest that this syndrome represents a disorder of increased sensitivity in pain perception or so-called central pain amplification. Unfortunately, the exact cause of this disorder still remains elusive and unknown and limits the treatment to symptom relief without any known cure at this time. Paresthesia of upper and lower extremities of radha th sides 09/08/2024 Positive LORELEI (antinuclear an tibody) > 1:1280 speckled (2009) and 1:640 speckled (09/02/2024) 09/08/2024 Assessment & Plan (09/08/2024 12:06 PM CDT): By itself, a positive LORELEI test does not indicate the presence of an autoimmune disease or the need for therapy. Approximately 15% of the normal population will have a positive LORELEI test;and can also be seen in other conditions, such as thyroid diseases, viral infections or caused by some medications. The finding of a positive antinuclear antibody (LORELEI), especially with a low pretest probability for an associated connective tissue disease, is currently considered to be of undetermined clinical significance (often referred to as a false positive result) with her historical elements/symptoms reviewed, current clinical examination findings, and additional available laboratory results reviewed, regarding this result not consistent with a specific diagnosis of a defined systemic connective tissue disease including systemic lupus erythematosus or systemic inflammatory rheumatic disorder by [employer] (ACR) diagnostic classification criteria at this time. Tanya Lizarraga lacks features of any systemic autoimmune LORELEI-related connective tissue disease. LORELEI positivity is present in up to 30% of the normal population . Since the prevalence of SLE is only ~0.1%, most positive LORELEI results can be attributed to other etiologies or considered represent f alse-positive results. LORELEI positivity increases in prevalence with female gender, older age, and numerous other conditions. Antinuclear antibody overview: A test for antinuclear antibodies (LORELEI) is common in people who are suspected of having an autoimmune or systemic connective tissue disease disorder. Antibodies are proteins that are made as part of the immune response. The result of an LORELEI test may be used in 1 or more ways: To aid in diagnosis of an autoimmune or connective tissue disease disorder, to rule out autoimmune or connective tissue disease disorders in people presenting only with a few symptoms, to measure disease activity, and order to determine the specific type of disease that affects the patient. Of people with the following disorders or characteristics may have positive LORELEI test results including systemic lupus erythematosus, scleroderma, mixed connective tissue disease, polymyositis/dermatomyositis, rheumatoid arthritis, rheumatoid vasculitis, Sjogren syndrome, drug-induced lupus, discoid lupus, possibly articular juvenile chronic idiopathic arthritis or ANCA related vasculitic syndromes. In addition, some people with autoimmune diseases that affect the gastrointestinal tract, thyroid gland, liver, or lung (including Lisset's thyroiditis, Graves disease, autoimmune hepatitis, primary biliary cirrhosis, primary autoimmune cholangitis, inflammatory bowel disease including Crohn's disease or ulcerative colitis, and idiopathic pulmonary arterial hypertension) can have a positive LORELEI test. Additionally, certain chronic infectious diseases, such as mononucleosis/EBV, hepatitis C virus infection, subacute bacterial endocarditis, tuberculosis, lymphoproliferative diseases, and human immunodeficiency virus (HIV) may also produce a positive LORELEI test. As such, a positive LORELEI does not necessarily mean that the person has lupus or another systemic connective tissue disease disorder. As noted earlier, many healthy people may have a positive LORELEI test. The LORELEI test is said to be a f alse positive test result when a person test positive but does not have any other features of autoimmune disease. This situation occurs more often in women and elderly people especially when tested in individuals with a low pretest probability for systemic lupus erythematosus or other systemic rheumatic connective tissue disease. Certain medications also may increase the chance of having a positive LORELEI test which may or may not represent a drug-induced lupus type syndrome. Depending on the symptoms that led to the initial LORELEI screening testing may be necessary and ordered for further evaluation may or may not be recommended for 1 or more of the disorders that can be associated with a positive LORELEI. HEIDI (obstructive sleep apnea) 04/14/2024 Overview (04/14/2024): Testing 04/2024 - CPAP recommended moderate Chronic tension-type headache, not intractable 0 01/16/2021 IGT (impaired glucose tolerance) 10/04/2019 Gastroesophageal reflux disease without esophagi tis 10/13/2017 Vitamin D deficiency 07/03/2015 Overview (08/10/2015): Essential hypertension 03/27/2010 Hyperlipidemia LDL goal <130 03/27/2010 Generalized anxiety disorder Overview (11/17/2017): Maintained on librium before establishing with me. Mitral valve regurgitation Restrictive lung disease Pulmonic valve regurgitation Resolved Problems Problem Noted Date Diagnosed Date Resolved Date Obesity 03/23/2024 11/22/2024 Systemic lupus erythematosus 02/12/2024 Seasonal allergies Encounters Date Type Department Care Team Description 07/01/2025 Telephone [facility] - Internal Medicine [address] [place] [address] [address] [place] [address] Philip Duarte MD URI 06/27/2025 11:00 AM CDT Office Visit [facility] [address] [place] [address] [address] [place] [address] Shelbie Condon, FUNERAL DRIVER-COVERED BUCKLE ASSEMBLER Nonallergic rhinitis (Primary Dx); Gastroesophageal reflux disease without esophagitis; Fibromyalgia syndrome; Positive LORELEI (antinuclear antibody) > 1:1280 speckled (2009) and 1:640 speckled (09/02/2024); Chronic tension-type headache, not intractable; Essential hypertension; Hyperlipidemia LDL goal <130; Vitamin D deficiency 05/20/2025 Refill [facility] - GI [address] [facility] [address] [place] [address] Juancarlos Cortez, FUNERAL DRIVER-COVERED BUCKLE ASSEMBLER MEDICATION REFILL 04/19/2025 Telephone [facility] - Rheumatology [address] [place] [address] [address] [place] [address] Anup Alston DO Record Request from Last 3 Months Immunizations Immunization Administration Dates Next Due INFLUENZA VACCINE, TRIV. (AF LURIA, FLUZONE TRIVALENT; 6MO+) (IIV3) 10/19/2012,11/18/2011 COVID SARI PRIMARY 18+YR 01/15/2021 Covid Pfizer primary monoval ent 12+ yr 0.3mL Purple cap 11/27/2021 FLU VACCINE QUAD IIV4 PF ID 09/09/2016 FLU VACCINE TRI IIV3 SPLIT P F IM (FLUVIRIN) 10/04/2013 INFLUENZA VACCINE, QUADR. (F LUZONE; FLULAVAL; FLUARIX; AFLURIA QUADRIVALENT; 6MO+), 0.5 ML (IIV4) 08/11/2023,10/15/2022,09/26/2021,2019,09/08/2017,09/12/2015,10/24/2014 iNFLUENZA VACCINE, RECOM-CLARKE, QUADR. (FLUBLOCK QUADRIVALENT; 18Y+) (RIV4) 10/04/2019,09/28/2018 Family History Medical History Relation Name Comments Hypercholesterolemia Brother # 3 Hypertension Brother # 3 Arthritis Mother Diabetes Mother Heart Failure Mother Hypertension Mother Stroke Mother Hypertension Sister 1 # 8 Lupus Sister 2 Blood Disease Sister 3 HALF Relation Name Status Comments Brother # 3 Mother Sister 1 # 8 Sister 2 Sister 3 Social History Tobacco Use Types Packs/Day Years Used Date Smoking Tobacco: Never Smokeless Tobacco: Never Alcohol Use Standard Drinks/Week Comments No 0 (1 standard drink = 0.6 oz pur e alcohol) PHQ-2 Answer Date Recorded Patient Health Questionnaire-2 Score 0 06/27/2025 Comments No Sex and Gender Information Value Date Recorded Sex Assigned at Not on file Legal Sex Female 6:39 AM ROUTE JUMPER Gender Identity Not on file Sexual Orientation Not on file Last Filed Vital Signs Vital Sign Reading Time Taken Comments Blood Pressure 134/66 06/27/2025 11:24 AM CDT Pulse 76 06/27/2025 11:24 AM CDT Temperature 36.2 C (97.2 F) 06/27/2025 11:24 AM CDT Respiratory Rate 16 06/27/2025 11:24 AM CDT Oxygen Saturation 98% 06/27/2025 11:24 AM CDT Inhaled Oxygen Concentration - - Weight 74.4 kg (164 lb) 06/27/2025 11:24 AM CDT Height 170.2 cm (5' 7) 06/27/2025 11:24 AM CDT Body Mass Index 25.69 06/27/2025 11:24 AM CDT Plan of Treatment Upcoming Encounters Date Type Department Care Team (Late st Contact Info) Description 08/01/2025 10:00 AM CDT Office Visit [facility] - [address] [facility] [address] [place] [address] Juancarlos Cortez, FUNERAL DRIVER-COVERED BUCKLE ASSEMBLER [address] [place] [address] [place] [address] 09/12/2025 10:00 AM ROUTE JUMPER Office Visit [facility] - Rheumatology [address] [facility], [address] [place] [address] Anup Alston DO [address] [facility] [address] [place] [address] 12/09/2025 10:30 AM ROUTE JUMPER Office Visit [facility] - Allergy [address] [place] [address], [place] [id number] Ariel Allen MD [address] [place] [address] DIV [place] ALLERGY/[place] [address] 01/02/2026 11:20 AM ROUTE JUMPER Office Visit [facility] - Internal Medicine [address] [facility] [address] [place] [address] [place] [address] [place] [address] [address] [place] [address] Health Maintenance Due Date Last Done Comments COLOGUARD (AGES 45-75) - COLON CA SCREENING 1960 CT COLONOGRAPHY - COLON CA SCREENING 1960 FIT - COLON CA SCREENING 1960 FLEX SIG - COLON CA SCREENING 1960 DTAP/TDAP/TD VACCINES (1 - Tdap) 1980 PNEUMOCOCCAL VACCINE 50+ (1 of 1 - PCV) 2011 ZOSTER VACCINE (1 of 2) 2011 BONE DENSITY TESTING 08/08/2016 08/08/2014 Respiratory Syncytial Virus (RSV) Vaccine Pt: or over 60 yrs (1 - Risk 60-74 years 1-dose series) 2021 MAMMOGRAM 04/08/2024 04/08/2023, 05/0 07/2022, 02/27/2021, Additional history exists INFLUENZA VACCINE (#1) 2025 , 10/15/2022, 09/26/2021, Additional history exists COVID-19 VACCINE ( - season) 2025 11/27/2021, 01/15/2021 Postponed from 07/11/2024 (Patient Refused) SCREENING FOR DIABETES 12/03/2027 , 08/28/2024, 08/28/2024, Additional history exists COLONOSCOPY - COLON CA SCREENING 05/19/2028 05/19/2023, 05/19/2023, 06/22/2014 Colorectal Cancer Screening 05/19/2028 COLON MONITORING 05/19/2033 05/19/2023, 05/19/2023 HEPATITIS C SCREENING Completed 02/07/2014 DEPRESSION SCREENING Completed 11/22/2024, 02/12/2024, 11/15/2022, Additional history exists HEPATITIS B VACCINE Aged Out No longe r eligible based on patient's age to complete this topic HIB VACCINE Aged Out No longer eligi ble based on patient's age to complete this topic HIV SCREENING Discontinued HPV VACCINE Aged Out No longer eligi ble based on patient's age to complete this topic MENINGOCOCCAL (Group B) VACCINE SHARED DECISION-MAKING Aged Out No longer eligible based on patient's age to complete this topic MENINGOCOCCAL GROUPS A/C/Y/W VACCINE Aged Out No longer eligible based on patient's age to complete this topic Goals Goal Patient Goal Type Associated Problems Recent Progress Patient-Stated? Author Blood Pressure < 140/90 Blood Pressure 134/66( 025 11:24 AM CDT) No Florence Noyola Procedures Procedure Name Priority Date/Time Associated Diagnosis Comments HEMOGLOBIN A1C Routine 12/03/2024 10:10 AM ROUTE JUMPER IGT (impaired glucose tolerance) ENDOSCOPY, COLON, SCREENING Routine 05/19/2023 12:06 PM CDT Screen for colon cancer MAMMOGRAM 04/08/2023 DEXA BONE DENSITY 2 SITES Routine 08/08/2014 HEPATITIS C ANTIBODY Routine 02/07/2014 9:02 AM CDT Need for hepatitis C screening test from Last 3 Months or Most Recently Relevant to Health Maintenance Results * HEMOGLOBIN A1C (12/03/2024 10:10 AM ROUTE JUMPER) Hemoglobin A1c 5.6 4.8 - 5.6 % [facility] ACCOUNT BILL Comment: Prediabetes: 5.7 - 6.4 Diabetes: >6.4 Glycemic control for adults with diabetes: <7.0 Blood BLOOD SPECIMEN / Unknown 12/03/2024 10:10 AM ROUTE JUMPER 12/03/2024 Narrative [facility] ACCOUNT BILL - 12/04/2024 12:06 AM ROUTE JUMPER Performed at: 01 - [facility] [id number] Architecture Intern: Demario Betancur PhD, Phone: [phone] us Philip Duarte MD LAB - CHEMISTRY ORDERABLES Fi nal Result [facility] ACCOUNT BILL [address] [place] [address] * ENDOSCOPY, COLON, SCREENING (05/19/2023 12:06 PM CDT) Report Endoscopy POC _ Patient Name: Tanya Lizarraga Procedure Date: 05/19/2023 12:06 PM Date of : 1960 Admit Type: Outpatient Age: 63 Gender: Female Ethnicity: Not or Race: Black or Attending MD: Brian Montelongo MD, [id number] _ Procedure: Colonoscopy Indications: Screening for colorectal malignant neoplasm Providers: Brian Montelongo MD (Doctor), Sola Pride RN, Elicia Blackwell, Field Hauler Referring MD: Reji Summers MD (Referring MD) Medicines: Monitored Anesthesia Care Complications: No immediate complications. _ Estimated Blood Loss: Estimated blood loss: none. Procedure: Pre-Anesthesia Assessment: - Prior to the procedure, a History and Physical was performed, and patient medications and allergies were reviewed. The patient's tolerance of previous anesthesia was also reviewed. The risks and benefits of the procedure and the sedation options and risks were discussed with the patient. All questions were answered, and informed consent was obtained. Prior Anticoagulants: The patient has taken no anticoagulant or antiplatelet agents. ASA Grade Assessment: II - A patient with mild systemic disease. After reviewing the risks and benefits, the patient was deemed in satisfactory condition to undergo the procedure. After I obtained informed consent, the scope was passed under direct vision. Throughout the procedure, the patient's blood pressure, pulse, and oxygen saturations were monitored continuously. The Colonoscope was introduced through the anus and advanced to the cecum, identified by appendiceal orifice and ileocecal valve. The colonoscopy was performed without difficulty. The patient tolerated the procedure well. The quality of the bowel preparation was fair. The ileocecal valve, appendiceal orifice, and rectum were photographed. Impression: - Preparation of the colon was fair. - One 2 mm polyp in the rectum, removed with a jumbo cold forceps. Resected and retrieved. Findings: A 2 mm polyp was found in the rectum. The polyp was sessile. The polyp was removed with a jumbo cold forceps. Resection and retrieval were complete. Estimated blood loss: none. _ Recommendation: - Written discharge instructions were provided to the patient. - The signs and symptoms of potential delayed complications were discussed with the patient. - Patient has a contact number available for emergencies. - Return to normal activities tomorrow. - Resume previous diet. - Continue present medications. - Await pathology results. - Repeat colonoscopy in 3 - 5 years for surveillance based on pathology results. Procedure Code(s): --- Professional --- 10386, Colonoscopy, flexible; with biopsy, single or multiple --- Technical --- 17776, Colonoscopy, flexible; with biopsy, single or multiple Diagnosis Code(s): --- Professional --- Z12.11, Encounter for screening for malignant neoplasm of colon D12.8, Benign neoplasm of rectum --- Technical --- Z12.11, Encounter for screening for malignant neoplasm of colon D12.8, Benign neoplasm of rectum CPT copyright 2020 [employer]. All rights reserved. The codes documented in this report are preliminary and upon care clinician review may be revised to meet current compliance requirements. Brian Montelongo MD 05/19/2023 1:52:02 PM This report has been signed electronically. Number of Addenda: 0 Note Initiated On: 05/19/2023 12:06 PM [facility] 05/19/2023 12:0 6 PM CDT us Brian Montelongo MD GI PROCEDURE ORDERABLES Edited R esult - Final [facility] * MAMMOGRAM (04/08/2023) Anatomical Region Laterality Modality Other 04/08/2023 Narrative 04/08/2023 Ordered by an unspecified provider. us Scanned Document SCANNING ONLY Final Result * DEXA BONE DENSITY 2 SITES (08/08/2014) Anatomical Region Laterality Modality Other us Provider Unknown DEXA ORDERABLES Final Result * HEPATITIS C ANTIBODY (02/07/2014 9:02 AM CDT) Hepatitis C Antibody 0.1 0.0 - 0.9 s/co ratio [facility] ACCOUNT BILL Comment: Negative: < 0.8 Indeterminate 0.8 - 0.9 Positive: > 0.9 . In order to reduce the incidence of a false positive result, the CDC recommends that all s/co ratios between 1.0 and 10.9 be confirmed by a more specific supplemental or PCR testing. [facility] w/Reflex to Verification test #[id number]. 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
--- OUTSIDE RECORDS SUMMARY | 2025-07-05 10:38 | XMS_ITS | Clinical Summary ---
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 Gender Identity Not on file Sexual Orientation Not on file Plan of Treatment Health Maintenance Due Date Last Done Comments Hepatitis C Virus (HCV) Screening 1961 TdaP Immunization 1961 Pap Smear 1982 Cervical Cancer Screening (CCS) 1991 HPV/Cotest 1991 Cologuard 2006 Colonoscopy 2006 Colorectal Cancer Screening 2006 Immunochemical Fecal Occult Blood 2006 Pneumococcal Immunization (5 0+ years) (1 of 1 - PCV) 2011 Zoster Immunization (1 of 2) 2011 SARS-COV-2 Immunization (2 - season) 2024 01/15/2021 Influenza Immunization (#1) 2025 10/25/2020 Respiratory Syncytial Virus (RSV) Immunization (Adult) (1 - 1-dose 75+ series) 2036 Hepatitis B Immunization Aged Out No longer eligible based on patient's age to complete this topic Human Papillomavirus (HPV) Immunization Aged Out No longer eligible b ased on patient's age to complete this topic Meningococcal Immunization (ACWY) Aged Out No longer eligible based on patient's age to complete this topic Rotavirus Immunization Aged Out No lo nger eligible based on patient's age to complete this topic
== END 2025-07-05 10:13 | disposition home or self-care (01) ==
PROVIDERS: Visit Provider Obstetrics & Gynecology
DX: Z12.31 Encounter for screening mammogram for malignant neoplasm of breast (principal)
CPT/HCPCS: 77063; 77067